=== PATIENT | male | born 1965 | race Caucasian/White ===

== ENCOUNTER 2016-08-03 12:41 | Emergency (ER) | payer MEDICAID ==
[~2016-08-03] VITALS: Ht 182.9 cm; Wt 158.8 kg
[2016-08-03 13:50] LABS: BASOPHIL % 0.6 % (0-2)
[2016-08-03 13:57] LABS: PLATELET COUNT 72 x10^3mcL (130-400); RED CELL DISTRIBUTION WIDTH 17.7 % (11.5-14.5)
[2016-08-03 14:03] LABS: CALCIUM 8.9 mg/dL (8.5-10.1); CARBON DIOXIDE 25.3 mmol/L (21-32); CHLORIDE SERUM 107 mmol/L (98-107); CREATININE SERUM 1.1 mg/dL (0.7-1.3); GFR1 > 60 mL/min; GLUCOSE SERUM 151 mg/dL (74-106); SODIUM SERUM 139 mmol/L (136-145)
[2016-08-03 14:08] LABS: ALKALINE PHOSPHATASE 89 U/L (46-116); ALT/SGPT 30 U/L (16-63); AST/SGOT 70 U/L (15-37); BILIRUBIN TOTAL 2.86 mg/dL (0.20-1.00); TOTAL PROTEIN, SERUM 6.3 g/dL (6.4-8.2)
[2016-08-03 14:13] LABS: ALBUMIN 1.8 g/dL (3.4-5.0)
[2016-08-03 15:05] VITALS: BP 138/79
== END 2016-08-03 15:05 | disposition home or self-care (01) ==
LOC: ED 12:41
PROVIDERS: Emergency Medicine
DX: M25.551 Pain in right hip (principal); R60.1 Generalized edema; E88.09 Other disorders of plasma-protein metabolism, not elsewhere classified; D61.818 Other pancytopenia; E11.9 Type 2 diabetes mellitus without complications; I10 Essential (primary) hypertension; E80.6 Other disorders of bilirubin metabolism
CPT/HCPCS: 83880